=== PATIENT | male | born 1950 | race Caucasian/White ===

== ENCOUNTER 2018-06-19 15:56 | Emergency (ER) | payer OTHER ==
[~2018-06-19 15:56] MED LIST: BG MC; DIT5 PO; HUMULIN R100 U/1 M1 SC; LEVAQUIN750 MG PO; LEVEMIR100 U/M1 SQ; METFORMIN HCL500 MG PO; TERAZOSIN HCL10 MG PO; ZESTRIL5 MG PO
[2018-06-19 20:07] VITALS: BP 132/88
== END 2018-06-19 20:07 | disposition home or self-care (01) ==
LOC: ED 15:56
DX: M16.0 Bilateral primary osteoarthritis of hip (principal); M17.0 Bilateral primary osteoarthritis of knee; M19.012 Primary osteoarthritis, left shoulder; M19.011 Primary osteoarthritis, right shoulder; I10 Essential (primary) hypertension; E11.9 Type 2 diabetes mellitus without complications; Z89.611 Acquired absence of right leg above knee; Z98.890 Other specified postprocedural states
CPT/HCPCS: J1885